=== PATIENT | female | born 1990 | race Caucasian/White ===

== ENCOUNTER 2020-12-27 15:38 | Inpatient (IN) | payer BC, OTHER ==
[~2020-12-27] VITALS: Ht 157.5 cm; Wt 132.5 kg
[~2020-12-27 15:38] MED LIST: NORCO 5-325 TA1 EACH PO
--- NOTE | 2020-12-27 18:16 | NUR ---
RAPID COVID TEST DONE PER DR ORDER. COVID TEST COLLECTED FROM BOTH NARES. LEFT NARE HAS OBSTRUCTION. RIGHT SIDE GOOD. PT TOLERATED WELL.
--- NOTE | 2020-12-28 07:36 | PR ---
[facility] [address] [facility] [place], [place] [address] Signed Progress Notes IP Datetime Report Generated by CPN: 12/28/2020 07:36 PROGRESS NOTES: [id number] Impression: Normal Progression of Labor Plan: Continue Present Management; Anticipate Vaginal Delivery VITAL SIGNS: [id number] Vital Signs: Reviewed VS Notable Details: Elevated BP EXAM: [id number] Dilatation: 2.0 Effacement: 60 Station: -3 Contractions: none MEMBRANES: [id number] Membranes Status: Intact Comments: Comfortable with Epidural, had episodes of late decels after Epidural (with lower BP), but resolved after fluid boluses and O2. Received Cytotec x4 (last dose @ 0615). Hopefully can AROM when due for next Cytotec. FETUS A: [id number] FHR Baseline: 140 Variability: Moderate 6-25bpm Accelerations: 15X15 Presentation: Vertex FETUS B: [id number] Signing Physician: Mikey Abbasi MD Copies: ~ *Electronically Signed* 12/28/20 0736 MIKEY ABBASI MD PATIENT NAME: GOLD AIKENHANIE WOODY PROGRESS NOTE DATE OF : [birth year] PHYSICIAN: MIKEY ABBASI MD RPT #: [id number] REPORT IS CONFIDENTIAL AND NOT TO BE RELEASED WITHOUT AUTHORIZATION
--- NOTE | 2020-12-28 09:04 | PR ---
[facility] [address] [facility] [place], [place] [address] Signed Progress Notes IP Datetime Report Generated by ADEN: 12/28/2020 09:04 PROGRESS NOTES: [id number] Impression: Normal Progression of Labor Procedures: Artificial ROM; Intrauterine Pressure Catheter; Scalp Electrode Plan: Anticipate Vaginal Delivery VITAL SIGNS: [id number] Vital Signs: Reviewed VS Notable Details: Elevated BP EXAM: [id number] Dilatation: 2.0 Effacement: 60 Station: -3 Contractions: none MEMBRANES: [id number] Membranes Status: Ruptured Comments: Comfortable with Epidiural, BP normal since Epidural, no additional IV meds needed for HTN so far Will continue with daily meds (Fluoxetine and Procardia XL, but decrease Procardia from 90 mg to 30 mg at this time). Continue to watch BP. FETUS A: [id number] FHR Baseline: 140 Variability: Moderate 6-25bpm Accelerations: 15X15 Presentation: Vertex FETUS B: [id number] Signing Physician: Mikey Abbasi MD Copies: ~ *Electronically Signed* 12/28/20 0904 MIKEY ABBASI MD PATIENT NAME: DESEAN AIKEN PROGRESS NOTE DATE OF : [birth year] PHYSICIAN: MIKEY ABBASI MD RPT #: [id number] REPORT IS CONFIDENTIAL AND NOT TO BE RELEASED WITHOUT AUTHORIZATION
--- NOTE | 2020-12-28 13:19 | NUR ---
12/28/20 1319 Krissy Vergara7PT ARRIVED TO ROOM 102 ON RA, IV INFUSING LR WITH 30 PIT PER NOVELTY DIPPER. VSS. PT DENIES PAIN AND NAUSEA. WARM BLACKETS GIVEN PER REQUEST. PT EDUCATION GIVEN ON FUNDAL CHECKS. PT MOTHER AT BEDSIDE.
--- NOTE | 2020-12-28 13:19 | PR ---
[facility] [address] [place], [place] [address] Signed Progress Notes IP Datetime Report Generated by CPN: 12/28/2020 13:19 PROGRESS NOTES: [id number] Impression: Normal Progression of Labor; Non-reassuring Heart Rate Other Impressions: Bradycardia Procedures: Artificial ROM; Intrauterine Pressure Catheter; Scalp Electrode Plan: Tocolysis; Deliver- Section Informed Consent Obtain: Section Delivery Other Informed Consents: Verbal connsent VITAL SIGNS: [id number] Vital Signs: Reviewed VS Notable Details: Elevated BP EXAM: [id number] Dilatation: 3.0 Effacement: 60 Station: -2 Contractions: none MEMBRANES: [id number] Membranes Status: Ruptured Comments: Bradycardia after Epidural, but good BP. Tried extreme left side/right side, fluid bolus, SQ Terbutaline. To OR for Code 4 C/S; discussed procedure/risks to patient, verbal consent given. Patient to OR FETUS A: [id number] FHR Baseline: 140 Variability: Moderate 6-25bpm Accelerations: 15X15 Presentation: Vertex FETUS B: [id number] Signing Physician: Tiffanie Abbasi MD Copies: ~ *Electronically Signed* 12/28/20 1319 TIFFANIE ABBASI MD PATIENT NAME: DESEAN AIKEN PROGRESS NOTE DATE OF : 91 PHYSICIAN: TIFFANIE ABBASI MD RPT #: [id number] REPORT IS CONFIDENTIAL AND NOT TO BE RELEASED WITHOUT AUTHORIZATION
--- NOTE | 2020-12-29 13:04 | PR ---
[facility] [address] [facility] [place], [place] [address] Signed PP Progress Notes Datetime Report Generated by CPN: 12/29/2020 13:04 SUBJECTIVE: [id number] Pain: Within Normal Limits Nausea/Vomiting: Denies Flatus: Yes Bowel Movement: No Vital Signs: [id number] Vital Signs: Reviewed; Within Normal Limits Notable Details: PP Hgb/Hct = 11.4/35.0 Cardiovascular: Normal Respiratory: Normal Abdomen/Uterus: Normal Lochia: Normal Vulva/Perineum: Not Done Extremities: Normal Incision: Normal IMPRESSION/PLAN/PROCEDURES: [id number] Impression: Normal Progression Plan: Continue Present Management Procedures: None Progress Notes: Doing well, without complaint, voding without difficulty, up moving. BP slightly elevated, restarted Procardia XL 30 daily, will watch BP and may need to increase dose Signing Physician: Tiffanie Abbasi MD Copies: ~ *Electronically Signed* 12/29/20 1304 TIFFANIE ABBASI MD PATIENT NAME: DESEAN AIKEN PROGRESS NOTE DATE OF : 91 PHYSICIAN: TIFFANIE ABBASI MD RPT #: [id number] REPORT IS CONFIDENTIAL AND NOT TO BE RELEASED WITHOUT AUTHORIZATION
--- NOTE | 2020-12-30 09:02 | OR ---
[facility] [address] [place], [place] [address] Signed DATE OF OPERATION: 12/28/2020 SURGEON: Mikey Carrillo MD PREOPERATIVE DIAGNOSIS: Term labor, chronic hypertension, and bradycardia. POSTOPERATIVE DIAGNOSIS: Term labor, chronic hypertension, and bradycardia. PROCEDURE: Emergency low transverse segment section, delivery live male . CHIPPER: Dr. Dey. ANESTHESIA: Epidural. ESTIMATED BLOOD LOSS: 800 mL. COMPLICATIONS: None. DRAINS: Glasgow to bladder. FINDINGS: Live male infant, Apgars 2, 6, and 9. Weight 6 pounds 15 ounces. Normal uterus, normal tubes, and ovaries bilateral. DESCRIPTION OF PROCEDURE: The patient had bradycardia and code for was called. The patient brought to the OR rapidly. The patient had recently received epidural and had good anesthesia and already had Glasgow catheter in place, so the patient was rapidly prepped and draped in usual sterile fashion. A Pfannenstiel skin incision was made with a scalpel and extended through the subcutaneous tissue with a scalpel and then the fascia nicked with a scalpel in the midline and the fascia was extended transverse fashion using curved scissors. The underlying abdominal musculature was bluntly and sharply Electronically Signed By: MIKEY CARRILLO MD 12/30/20 0902 PATIENT NAME: DESEAN AIKEN OPERATIVE REPORT DATE OF : [birth year] REPORT #: [id number] PHYSICIAN: MIEKY CARRILLO MD PCP: LAY MATHUR NP REPORT IS CONFIDENTIAL AND NOT TO BE RELEASED WITHOUT AUTHORIZATION [facility] [address] [place], [place] [address] Signed from the fascia above and below the incision. The abdominal musculature was bluntly along the midline. The peritoneum grasped with hemostats, elevated, nicked with scissors and opened with blunt dissection. The Harvey self-retaining retractor was inserted into the incision and tightened in place in the lower uterine segment, identified and carefully nicked with scalpel. Finger dissection was used to extend the incision in transverse fashion. The 's head was easily delivered from the incision. The rest of the was easily delivered from the incision. The cord was doubly clamped and cut. The passed off the table to awaiting nurse and linking machine operator. Cord gases were obtained. The placenta was then manually removed. The placenta was visually examined and appeared to be normal. No reason for the bradycardia was seen at this time. The uterine cavity was explored with a lap pad to remove any retained membranes. An angle stitch of 0 Monocryl was placed at one end of the incision and a running locking stitch of 0 Monocryl suture used to close starting at the other end used to close the incision. A second running stitch of 0 Monocryl was used to imbricate the first layer. Good hemostasis was obtained. The entire pelvis was irrigated, suctioned, and examined, and any superficial bleeding spots cauterized with the Bovie. When good hemostasis was obtained, the Harvey retractor was removed and sheet of ACell placed over lower uterine segment to help with healing. The peritoneum was closed using running stitch of 2-0 Vicryl suture. The abdominal musculature was reapproximated using interrupted stitches of 0 Vicryl suture. There was one bleeding spot to the right side in the muscle. This was controlled with two [id number] stitches of 0 Monocryl suture. The entire pelvis was irrigated, suctioned, and examined, and any bleeding spots cauterized with the Bovie. The fascia was then closed using two running stitch of 0 Vicryl suture meeting in the midline. Subcutaneous tissue was irrigated, suctioned, and examined, and any bleeding spots cauterized with the Bovie. Powdered ACell sprinkled over the subcutaneous tissue to help with healing, which was then closed using interrupted stitches of 3-0 Vicryl suture. The skin was reapproximated using skin clips. The patient tolerated the procedure well, went to recovery room in good condition. The sponge, needle, instrument count were correct at the end of the procedure. Cord gases were obtained. Mikey Carrillo MD MJB/MODL /[id number] Electronically Signed By: MIKEY CARRILLO MD 12/30/20 0902 PATIENT NAME: DESEAN AIKEN OPERATIVE REPORT DATE OF : [birth year] REPORT #: [id number] PHYSICIAN: MIKEY CARRILLO MD PCP: LAY MATHUR NP REPORT IS CONFIDENTIAL AND NOT TO BE RELEASED WITHOUT AUTHORIZATION [address] [address] Signed Copies: ~ Electronically Signed By: MIKEY CARRILLO MD 12/30/20 0902 PATIENT NAME: DESEAN AIKEN OPERATIVE REPORT DATE OF : [birth year] REPORT #: [id number] PHYSICIAN: MIKEY CARRILLO MD PCP: LAY MATHUR NP REPORT IS CONFIDENTIAL AND NOT TO BE RELEASED WITHOUT AUTHORIZATION
--- NOTE | 2020-12-30 09:32 | PR ---
[facility] [address] [facility] [place], [place] [address] Signed PP Progress Notes Datetime Report Generated by CPN: 12/30/2020 09:32 SUBJECTIVE: [id number] Pain: Within Normal Limits Nausea/Vomiting: Denies Flatus: Yes Bowel Movement: No Vital Signs: [id number] Vital Signs: Reviewed; Within Normal Limits Notable Details: PP Hgb/Hct = 11.4/35.0 Cardiovascular: Normal Respiratory: Normal Abdomen/Uterus: Normal Lochia: Normal Vulva/Perineum: Not Done Extremities: Normal Incision: Normal IMPRESSION/PLAN/PROCEDURES: [id number] Impression: Normal Progression Plan: Discharge Other Plans: Boarder Status Procedures: None Progress Notes: Doing well, without complaint, ready to go home, but baby needing to stay until tomorrow. Signing Physician: Tiffanie Abbasi MD Copies: ~ *Electronically Signed* 12/30/20931 TIFFANIE ABBASI MD PATIENT NAME: DESEAN AIKEN PROGRESS NOTE DATE OF : 91 PHYSICIAN: TIFFANIE ABBASI MD RPT #: [id number] REPORT IS CONFIDENTIAL AND NOT TO BE RELEASED WITHOUT AUTHORIZATION
== END 2020-12-30 15:00 | disposition home or self-care (01) | DRG 788 ==
LOC: US 15:38 → FBC 17:09
PROVIDERS: ADMIT General Practice; ATTEND General Practice
PROC: 10H07YZ Insertion of Other Device into Products of Conception, Via Natural or Artificial Opening (ICD-10-PCS; 2020-12-27)
PROC: 10D00Z1 Extraction of Products of Conception, Low, Open Approach (ICD-10-PCS; principal; 2020-12-28 12:15)
DX: O10.92 Unspecified pre-existing hypertension complicating childbirth (principal); Z37.0 Single live birth; O76 Abnormality in fetal heart rate and rhythm complicating labor and delivery; O99.344 Other mental disorders complicating childbirth; Z20.822 Contact with and (suspected) exposure to COVID-19; O99.214 Obesity complicating childbirth; E66.9 Obesity, unspecified; F32.9 Major depressive disorder, single episode, unspecified; F41.9 Anxiety disorder, unspecified; Z87.891 Personal history of nicotine dependence; Z3A.37 37 weeks gestation of pregnancy; Z91.02 Food additives allergy status
CPT/HCPCS: 01961; 76819; 82565; 82570; 82803; 84156; 84450; 84520; 84550; 85027; A9270; C9803; J0690; J1644; J1790; J2274; J2405; J2550; J2590; J2765; J2795; J3010; J3105; J7121; U0003

== ENCOUNTER 2022-07-05 10:33 | Inpatient (IN) | payer OTHER ==
[~2022-07-05] VITALS: Ht 160 cm; Wt 139.3 kg
--- NOTE | 2022-07-06 09:00 | NUR ---
07/06/22 0900 Christine Orellana 0850-PATIENT ARRIVED TO ROM 104 FOR RECOVERY. PATIENT AWAKE DENIES PAIN OR NAUSEA. REPORTS "ITCHY" DENIES NEED FOR MEDICATION. ST HR LOW 100'S. SCHROEDER CATHETER DRAINING YELLOW URINE. SPINAL LEVEL AT L1. 0955-FUNDUS 1 BELOW UMBILICUS FIRM WITH MASSAGE SMALL RED CLOT ON SAMMY PAD. PATIENT SEMI FOWLERS. PATIENT TEXTING ON PHONE. RA 97% RR EVEN. LR WITH 20 PITOCIN INFUSING TO LEFT WRIST CDI. BOYFRIEND AND MOM AT BEDSIDE. FBC RNS WITH BABY AT BEDSIDE.
[2022-07-06] MEDS ORDERED: NIFEDIPINE ER60 M1 PO (09:04)
--- NOTE | 2022-07-07 08:22 | PR ---
[facility] [address] [place], [place] [address] Signed PP Progress Notes Datetime Report Generated by ADEN: 07/07/2022 08:22 SUBJECTIVE: [id number] Pain: Within Normal Limits Nausea/Vomiting: Denies Flatus: Yes Bowel Movement: No Vital Signs: [id number] Abdomen/Uterus: Normal Lochia: Normal Extremities: Normal Incision: Normal IMPRESSION/PLAN/PROCEDURES: [id number] Impression: Normal Progression Plan: Continue Present Management Procedures: None Progress Notes: S: 32 yo s/p RLTCS, PPD/POD #1. Doing well. Denies ISAACS, CP, SOB, F/C, N/V, RUQ pain, changes in vision, vaginal discharge. Normal postoperative vaginal bleeding. Ambulating, tolerating diet, bae removed within the last hour and has not yet voided on her own. Pain controlled. She does report generalized all over body itching. She reports this was present prior to surgery and related to her cholestasis diagnosis. She had previously taken Ursodiol but discontinued its use as she said it made the itching worse. Benadryl has not helped. O: AFVSS Fundus firm, below umbilicus, appropriately TTP. Moving all extremeties. No C/C/E. A/P: Patient doing well on PPD/POD#1. She is willing to try Ursodiol again for itching. Will place order. Continue to [facility] today. Possible discharge home tomorrow AM. Signing Physician: Kaye Cope MD Copies: ~ *Electronically Signed* 07/07/22 08 KAYE COPE MD PATIENT NAME: DESEAN AIKEN PROGRESS NOTE DATE OF : 91 PHYSICIAN: KAYE COPE MD RPT #: [id number] REPORT IS CONFIDENTIAL AND NOT TO BE RELEASED WITHOUT AUTHORIZATION
--- NOTE | 2022-07-08 08:21 | PR ---
[facility] [address] [place], [place] [address] Signed PP Progress Notes Datetime Report Generated by ADEN: 07/08/2022 08:21 SUBJECTIVE: [id number] Pain: Within Normal Limits Nausea/Vomiting: Denies Flatus: Yes Bowel Movement: Yes Vital Signs: [id number] Vital Signs: Reviewed; Within Normal Limits Abdomen/Uterus: Normal Lochia: Normal Extremities: Normal Incision: Normal Exam Comments: Incision is C/D/I. Without erythema or drainage. [place] in place. Uterus firm and below umbilicus. Appropriate TTP. IMPRESSION/PLAN/PROCEDURES: [id number] Impression: Normal Progression Plan: Remove [place]; Discharge Procedures: None Progress Notes: S: Patient well. Denies ISAACS, CP, SOB. F/C, N/V, RUQ pain, changes in vision. Normal vaginal bleeding. Tolerating regular diet, ambulating, voding on her own, pain controlled. O: AFVSS - Blood pressures in the non severe range. A/P: Patient meeting hospital milestones. Will discharge home today. Signing Physician: Kaye Gifford MD Copies: ~ *Electronically Signed* 07/08/22820 KAYE GIFFORD MD PATIENT NAME: DESEAN AIKEN PROGRESS NOTE DATE OF : 91 PHYSICIAN: KAYE GIFFORD MD RPT #: [id number] REPORT IS CONFIDENTIAL AND NOT TO BE RELEASED WITHOUT AUTHORIZATION
== END 2022-07-08 15:40 | disposition home or self-care (01) | DRG 786 ==
LOC: FBC 07-06 05:28
PROVIDERS: ADMIT Obstetrics & Gynecology; ATTEND Obstetrics & Gynecology
PROC: 10D00Z1 Extraction of Products of Conception, Low, Open Approach (ICD-10-PCS; principal; 2022-07-06 07:30)
DX: O34.211 Maternal care for low transverse scar from previous cesarean delivery (principal); K83.1 Obstruction of bile duct; O26.62 Liver and biliary tract disorders in childbirth; Z37.0 Single live birth; Z67.40 Type O blood, Rh positive; O99.824 Streptococcus B carrier state complicating childbirth; O24.429 Gestational diabetes mellitus in childbirth, unspecified control; O11.4 Pre-existing hypertension with pre-eclampsia, complicating childbirth; Z20.822 Contact with and (suspected) exposure to COVID-19; O99.214 Obesity complicating childbirth; E66.01 Morbid (severe) obesity due to excess calories; Z3A.36 36 weeks gestation of pregnancy; Z87.891 Personal history of nicotine dependence
CPT/HCPCS: 01961; 36415; 80053; 82565; 82570; 83615; 84156; 84550; 85027; 86850; 86900; 86901; 87502; A9270; J0690; J1200; J1650; J1885; J2001; J2274; J2300; J2370; J2405; J2590; J3010; J7121; Q0177; U0003